=== PATIENT | female | born 1980 | race Caucasian/White ===

== ENCOUNTER 2018-07-27 08:57 | Outpatient (CLI) | payer OTHER | END 2018-07-27 08:58 | disposition home or self-care (01) | LOC: DTY/OP 08:57 | PROVIDERS: ATTEND Surgery | DX: E66.01 Morbid (severe) obesity due to excess calories (principal) | CPT/HCPCS: 97802 ==

== ENCOUNTER 2018-08-01 16:00 | Inpatient (IN) | payer OTHER ==
[2018-08-01 15:35] VITALS: BMI 44.9
[2018-08-09] MEDS ORDERED: Midazolam HCl 2 mg/2 ml Vial ONE (08:39)
[2018-08-09] MEDS ORDERED: Heparin 5,000 UNITS/ML VIAL ONE (08:39)
[2018-08-09] MEDS ORDERED: Midazolam HCl 2 mg/2 ml Vial IVP SCH (08:45)
[2018-08-09] MEDS ORDERED: Bupivacaine/Epinephrine 0.25% 30 ML VIAL ONE (09:18)
[2018-08-09] MEDS ORDERED: Scopolamine 1.5 mg/72 hour Patch ONE (09:39)
[2018-08-09] MEDS ORDERED: Fentanyl 100 MCG/2 ML VIAL ONE ×3 (09:59→12:19)
[2018-08-09] MEDS ORDERED: Promethazine HCl 25 MG/ML VIAL SLOW IVP PRN (11:39)
[2018-08-09] MEDS ORDERED: Promethazine HCl 25 MG/ML VIAL IM PRN ×2 (11:39)
[2018-08-09] MEDS ORDERED: Ondansetron HCl/PF 4 MG/2 ML Vial IVP PRN (11:39)
[2018-08-09] MEDS ORDERED: Zolpidem Tartrate 5 MG TAB PO PRN (11:39)
[2018-08-09] MEDS ORDERED: diphenhydrAMINE 50 MG/ML VIAL IVP PRN ×2 (11:39→11:41)
[2018-08-09] MEDS ORDERED: Naloxone HCl 0.4 mg/ml Vial IV PRN (11:39)
[2018-08-09] MEDS ORDERED: fentaNYL Citrate/PF 2,000 MCG in Sodium Chloride 0.9% 60 ML IV PRN (11:39)
[2018-08-09] MEDS ORDERED: Ondansetron PF 4 MG/2 ML Vial IVP PRN (11:39)
[2018-08-09] MEDS ORDERED: diphenhydrAMINE 50 MG/ML VIAL IM PRN (11:39)
[2018-08-09] MEDS ORDERED: diphenhydrAMINE 25 MG CAP PO PRN (11:39)
[2018-08-09] MEDS ORDERED: Dextrose 50% Abboject 50 ML SYRINGE SLOW IVP PRN (11:41)
[2018-08-09] MEDS ORDERED: hydrALAZINE 20 MG/ML VIAL SLOW IVP PRN (11:41)
[2018-08-09] MEDS ORDERED: Hydrocodone-Acetamin 15 ML UDCUP PO PRN (11:41)
[2018-08-09] MEDS ORDERED: Dextrose 5% in Water 1,000 ML IV PRN (11:41)
[2018-08-09] MEDS ORDERED: Promethazine HCl 25 MG/ML VIAL ONE ×2 (11:42→12:48)
[2018-08-09] MEDS: Communication Order-Pharmacy FS SCH (14:14)
--- NOTE | 2018-08-09 15:49 | OP ---
DATE OF PROCEDURE: 08/09/2018 PREOPERATIVE DIAGNOSIS: Morbid obesity, body mass index of 45. POSTOPERATIVE DIAGNOSIS: Morbid obesity, body mass index of 45. PROCEDURE PERFORMED: Laparoscopic sleeve gastrectomy, GORE staple line reinforcement, 38-Upper Sor[place] bougie. ANESTHESIA: General. ESTIMATED BLOOD LOSS: Minimal. COMPLICATIONS: None. SPECIMEN: Stomach. FINDINGS: Normal postoperative EGD. DESCRIPTION OF PROCEDURE: The patient was taken to operating room and laid supine on the operating room table. After general anesthetic was obtained, the arms and legs were double strapped to bariatric table. OG tube was used to decompress the stomach. Abdomen was prepped and draped in a sterile fashion. Left subcostal 5 mm Optiview trocar was placed in usual fashion and high-flow pneumoperitoneum was obtained. Left and right abdominal 12 mm ports as well as right subcostal 5 mm port were placed under direct visualization. Short gastrics were taken down from mid body of stomach to left ama of diaphragm. Left ama, posterior fundus, and angle of His completely dissected. Short gastrics were taken down in the distance of 6 cm proximal to the pylorus. OG tube was removed and 38 bougie was brought in with its tip left in the antrum of the stomach. Multiple loads of [place] stapling device were used to perform the sleeve, the first fired up at a distance of 6 cm proximal to the pylorus, angled up towards the incisura. Multiple loads were then fired up along the incisura and this was fired up along the bougie. Stomach was completely transected at the angle of His. Stomach was removed from the left abdominal incision. This fascial defect was closed using GraNee needle and 0 Vicryl tie. There was no bleeding on the staple line. EGD scope was passed through esophagus, stomach, to the level of duodenum without obstruction or bleeding. There was no air leakage through the staple line. There was no stricture at the incisura. EGD scope was used to decompress the stomach, it was pulled and removed. Shubham retractor was removed under direct visualization without bleeding. All port sites were infiltrated using local anesthetic and removed under direct visualization without bleeding. Pneumoperitoneum was let down. Vicryl was used to close the fascia from the left abdominal incisions. All incisions were irrigated and closed using 4-0 Monocryl and Dermabond. The patient was sent to Recovery in stable condition. All instrument counts, needle counts, and lap counts were correct. Job ID: [id number]
[2018-08-09] MEDS: Acetaminophen 1,000 MG in Premix Bag 1 BAG IVPB SCH ×2 (17:47→23:39)
[2018-08-09] MEDS: D5 1/2 NS w/20 mEq KCL 1,000 ML IV SCH (17:47)
[2018-08-09] MEDS: Ondansetron PF 4 MG/2 ML Vial IVP PRN (20:54)
[2018-08-09] MEDS ORDERED: Enoxaparin Sodium 40 MG/0.4 ML SYRINGE SC SCH (21:00)
[2018-08-10] MEDS: Promethazine HCl 25 MG/ML VIAL IM PRN ×2 (01:51→07:59)
[2018-08-10] MEDS: D5 1/2 NS w/20 mEq KCL 1,000 ML IV SCH ×3 (01:56→11:28)
[2018-08-10] MEDS: Acetaminophen 1,000 MG in Premix Bag 1 BAG IVPB SCH (05:06)
[2018-08-10] MEDS: Ondansetron PF 4 MG/2 ML Vial IVP PRN (05:09)
[2018-08-10 05:35] LABS: #Basophils 0.1 thou/uL (0.0-0.2); #Lymphocytes 1.1 thou/uL (1.20-3.40); #Monocytes 0.9 thou/uL (0.11-0.59); #Neutrophils 7.9 thou/uL (1.40-6.50); %Basophils 0.7 % (0.0-1.0); %Eosinophils 0.2 % (0.0-10.0); %Lymphocytes 10.7 % (21.0-51.0); %Neutrophils 79.4 % (42.0-75.0); Hemoglobin 13.6 g/dL (12.0-16.0); Mean Corpuscular HGB CONC 32.6 g/dL (32.0-36.0); Mean Corpuscular Hemoglobin 30.9 pg (27.0-31.0); Mean Corpuscular Volume 94.8 fL (78.0-98.0); Mean Platelet Volume 8.1 fL (7.4-10.4); Platelet Count 221 thou/uL (130-400); RBC Distribution Width 11.5 % (11.5-14.5)
[2018-08-10 05:49] LABS: Anion Gap 13 mmol/L (10-20); BUN (Urea Nitrogen) 4 mg/dL (7.0-18.7); Calc. Creatinine Clearance 284 mL/min (70-130); Calcium 8.8 mg/dL (7.8-10.44); Carbon Dioxide 18 mmol/L (22-29); Chloride 107 mmol/L (98-107); Estimated GFR-MDRD Greater than 90; Glucose 145 mg/dL (70-105); Sodium 134 mmol/L (136-145)
[2018-08-10] MEDS ORDERED: Pantoprazole 40 MG VIAL IVP SCH (09:00)
[2018-08-10] MEDS ORDERED: Acetaminophen 1,000 MG in Premix Bag 1 BAG IVPB PRN (09:24)
[2018-08-10] MEDS ORDERED: Hydrocodone-Acetamin 15 ML UDCUP PO PRN (10:00)
--- NOTE | 2018-08-10 10:45 | PDOC.GSPN ---
Surgery Progress Note: Subj - Subjective Narrative: complaining of nausea, ambulating well Surgery Progress Note: Obj - Vital signs Vital signs: Vital Signs - Most Recent Temp Pulse Resp BP Pulse Ox 98.2 F 50 L 14 131/84 98 08/10/18 07:09 08/10/18 07:09 08/10/18 07:09 08/10/18 07:09 08/10/18 07:09 - Physical Exam General: no distress Abdomen: soft, appropriately tender Wound: healing well Surgery Progress Note: Results - Labs Result Diagrams: 08/10/18 04:56 08/10/18 04:56 Lab results: Laboratory Results - last 24 hr 08/10/18 08/10/18 04:56 04:56 WBC 10.0 RBC 4.40 Hgb 13.6 Hct 41.7 MCV 94.8 MCH 30.9 MCHC 32.6 RDW 11.5 Plt Count 221 MPV 8.1 Neutrophils % 79.4 H Lymphocytes % 10.7 L Monocytes % 9.0 Eosinophils % 0.2 Basophils % 0.7 Neutrophils # 7.9 H Lymphocytes # 1.1 L Monocytes # 0.9 H Eosinophils # 0.0 Basophils # 0.1 Sodium 134 L Potassium 4.0 Chloride 107 Carbon Dioxide 18 L Anion Gap 13 BUN 4 L Creatinine 0.62 Estimated GFR (MDRD) Greater than 90 Glucose 145 H Calcium 8.8 Surgery Progress Note: A/P - Problem (1) Morbid obesity Current Visit: Yes Code(s): E66.01 - MORBID (SEVERE) OBESITY DUE TO EXCESS CALORIES Status: Acute - Plan Plan: POD 1 -nausea preventing her from drinking enough -stay another night if not improved this afternoon. -Lortab elix, ondansetron and protonix sent to her pharmacy
[2018-08-10] MEDS: Communication Order-Pharmacy FS SCH (11:29)
[2018-08-10 11:34] VITALS: BP 114/74; TEMP 98.1
[2018-08-10] MEDS ORDERED: Ondansetron ODT 4 MG TAB PO SCH (15:45)
== END 2018-08-10 16:01 | disposition home or self-care (01) | DRG 621 ==
LOC: SURG A 08-09 08:01
PROVIDERS: ADMIT Surgery; ATTEND Surgery
PROC: 0DB64Z3 Excision of Stomach, Percutaneous Endoscopic Approach, Vertical (ICD-10-PCS; principal; 2018-08-09)
DX: E66.01 Morbid (severe) obesity due to excess calories (principal); Z68.42 Body mass index [BMI] 45.0-49.9, adult; F17.210 Nicotine dependence, cigarettes, uncomplicated
CPT/HCPCS: 36415; 80048; 85025; 88307; 88312; 94760; C9113; J0131; J0690; J1200; J1644; J1650; J2250; J2405; J2550; J3010; J3490; Q0162

== ENCOUNTER 2022-06-24 12:33 | Emergency (ER) | payer BC, SELFPAY ==
[2022-06-24 14:10] LABS: #Basophils 0.1 thou/uL (0.0-0.2); #Lymphocytes 1.5 thou/uL (1.20-3.40); #Monocytes 0.5 thou/uL (0.11-0.59); #Neutrophils 3.6 thou/uL (1.40-6.50); %Basophils 0.9 % (0.0-1.0); %Eosinophils 0.4 % (0.0-10.0); %Lymphocytes 26.7 % (21.0-51.0); Hemoglobin 13.7 g/dL (12.0-16.0); Mean Corpuscular HGB CONC 33.1 g/dL (32.0-36.0); Mean Corpuscular Hemoglobin 32.3 pg (27.0-31.0); Mean Corpuscular Volume 97.7 fl (78.0-98.0); Mean Platelet Volume 7.4 fL (7.4-10.4); Platelet Count 226 10x3/uL (130-400); RBC Distribution Width 10.8 % (11.5-14.5); Red Blood Cell (RBC) Count 4.25 mill/uL (4.20-5.40); White Blood Cell (WBC) Count 5.6 10x3/uL (4.8-10.8)
[2022-06-24 14:23] LABS: BHCG - Serum Negative (NEGATIVE); Pregs Control Background? CLEAR/WHITE (CLR/WHITE); Pregs Control Bar Appear? YES (CONTROL BAR)
[2022-06-24 14:36] LABS: ALT (SGPT) 18 U/L (8-55); AST (SGOT) 19 U/L (5-34); Albumin 4.4 g/dL (3.5-5.0); Alkaline Phosphatase 55 U/L (40-110); Anion Gap 12 mmol/L (10-20); BUN (Urea Nitrogen) 11 mg/dL (7.0-18.7); Bilirubin, Total 0.7 mg/dL (0.2-1.2); Calc. Creatinine Clearance 0 mL/min (70-130); Calcium 9.4 mg/dL (7.8-10.44); Carbon Dioxide 27 mmol/L (22-29); Chloride 105 mmol/L (98-107); Estimated GFR 104; Globulin 2.7 g/dL (2.4-3.5); Glucose 81 mg/dL (70-105); Potassium 3.8 mmol/L (3.5-5.1); Protein, Total 7.1 g/dL (6.0-8.3); Sodium 140 mmol/L (136-145)
== END 2022-06-24 16:38 | disposition home or self-care (01) ==
LOC: ERS 12:33
DX: N20.0 Calculus of kidney (principal); R60.0 Localized edema
CPT/HCPCS: 74177; 80053; 84703; 85025; 93970